=== PATIENT | female | born 1965 ===

== ENCOUNTER 2016-05-05 18:21 | Emergency (ER) | payer MEDICAID ==
[2016-05-05] MEDS ORDERED: ACETAMINOPHEN 325 MG TAB ONE (18:29)
[2016-05-05] MEDS ORDERED: SODIUM CHLORIDE 0.9% 1,000 ML ONE (20:00)
[2016-05-05] MEDS ORDERED: SODIUM CHLORIDE 0.9% 100 ML IV ONE (20:44)
[2016-05-05] MEDS ORDERED: CEFTRIAXONE 1 GM VIAL ONE (20:44)
== END 2016-05-05 21:28 | disposition home or self-care (01) ==
LOC: ER 18:21
DX: J18.9 Pneumonia, unspecified organism (principal); F17.210 Nicotine dependence, cigarettes, uncomplicated
CPT/HCPCS: 36415; 71020; 80048; 81001; 83605; 85025; 87040; 87804; 87880; 96361; 96365